=== PATIENT | male | born 1960 | race Caucasian/White ===

== ENCOUNTER 2025-04-25 17:25 | Emergency (ER) | payer OTHER ==
[~2025-04-25] VITALS: Ht 185.4 cm; Wt 79.5 kg
[2025-04-25 17:26] VITALS: TEMP 97.9
[2025-04-25 17:51] LABS: PLATELET COUNT (AUTO) 249 K/uL (150-450); RED BLOOD CELL COUNT(AUTO) 4.54 MIL/uL (4.50-5.90); RED CELL DISTRIBUTION WIDTH 13.9 % (11.5-14.5); WHITE BLOOD COUNT (AUTO) 9.4 K/uL (4.5-11.0)
[2025-04-25 17:59] LABS: CALCIUM, TOTAL 9.2 mg/dL (8.8-10.5); CREATININE 0.84 mg/dL (0.60-1.30); GLOMERULAR FILTR. RATE CALC > 60 mL/min (>60); GLUCOSE,RANDOM 136 mg/dL (70-110); SODIUM SERUM 138 mmol/L (136-145); UREA NITROGEN, BLOOD 30 mg/dL (7-18)
[2025-04-25] MEDS: MORPHINE SULFATE 2 MG/ML SYRINGE IVP ONE ×2 (18:40→21:45)
[2025-04-25 19:47] VITALS: BP 123/71; PULSE 70; RESP 16; O2SAT 95
[2025-04-25 21:07] LABS: APPEARANCE,URINE HAZY (CLEAR); GLUCOSE, URINE (UA) NEGATIVE (NEGATIVE); LEUKOCYTE ESTERASE ,URINE SMALL (NEGATIVE); NITRATE,URINE NEGATIVE (NEGATIVE); OCCULT BLOOD,URINE NEGATIVE (NEGATIVE); SPECIFIC GRAVITIY, URINE 1.025 (1.003-1.030)
[2025-04-25 21:26] LABS: SQUAMOUS EPITHELIAL CELL,UR Few /LPF (None Seen)
[2025-04-25] MEDS: CEPHALEXIN MONOHYDRATE 500 MG CAPSULE PO ONE (21:42)
== END 2025-04-25 22:00 ==
LOC: EMS 17:25
DX: M54.40 Lumbago with sciatica, unspecified side (principal); N39.0 Urinary tract infection, site not specified; R20.2 Paresthesia of skin; M79.662 Pain in left lower leg; M79.604 Pain in right leg; Z65.3 Problems related to other legal circumstances; Z98.890 Other specified postprocedural states
CPT/HCPCS: 99285; 72148; 96374; 80048; 81001; 85025; 87077; 87086; 36415; 96376; J2270